=== PATIENT | male | born 1995 | race American Indian/Alaskan Native ===

== ENCOUNTER 2018-12-28 12:15 | Emergency (ER) | payer SELFPAY ==
[2018-12-28 12:32] VITALS: BP 113/68
--- NOTE | 2018-12-28 12:39 | Emergency Department Report ---
Chief Complaint: Urogenital-Male Stated Complaint: STD CHECK/WEST Time Seen by Provider: 12/28/18 12:35 - HPI History of Present Illness: This is a 23-year-old male nontoxic, well in appearance with no signs of distress presents to the ED for STD check. Patient states he is experiencing penile discharge. Denies any testicular pain, or swelling, urinary symptoms, fever, chills, headache, nausea, vomiting, chest pain or shortness of breathe. denies any other symptoms or complaints. Denies any allergies or PMH. - Exam Vital Signs: Vital Signs 12/28/18 12:30 Temperature 98.1 F Pulse Rate 81 Respiratory 18 Rate Blood Pressure 113/68 O2 Sat by Pulse 100 Oximetry MSE screening note: Focused history and physical exam performed. Due to findings the following was ordered: ED Medical Decision Making - Medical Decision Making This is a 23-year-old male that presents with nonmedical emergency complaint. Patient is just requested for a STD test. He reports discharge. Denies testicular swelling/pain, fever, urinary symptoms, or pelvic pain. Patient was approached by registration for insurance or copay but patient refused. I gave patient many different referrals to follow-up with STD concerns. Patient was instructed to Follow-up with a primary care doctor in 3-5 days or if symptoms worsen and continue return to emergency room as soon as possible. At time of discharge, the patient does not seem toxic or ill in appearance. No acute signs of distress noted. Patient agrees to discharge treatment plan of care. No further questions noted by the patient. ED Disposition for MSE Clinical Impression: Feared complaint without diagnosis Disposition: [id number] TO HOME OR SELFCARE Is pt being admited?: No Condition: Stable Instructions: Sexually Transmitted Diseases (ED), Safe Sex (ED) Additional Instructions: Follow-up with a primary care doctor in 3-5 days or if symptoms worsen and continue return to the emergency department as soon as possible. Referrals: [facility] [Outside] - 3-5 Days [facility] [Outside] - 3-5 Days [facility] [Outside] - 3-5 Days
== END 2018-12-28 12:58 | disposition home or self-care (01) ==
LOC: ED 12:15
DX: Z11.3 Encounter for screening for infections with a predominantly sexual mode of transmission (principal)